=== PATIENT | male | born 1950 | race African-American/Black ===

== ENCOUNTER 2022-12-19 15:40 | Emergency (ER) | payer MEDICAID, OTHER ==
[~2022-12-19] VITALS: Ht 170.2 cm; Wt 60.0 kg
[2022-12-19] MEDS ORDERED: SODIUM CHLORIDE 0.9% 1,000 ML IV ONE (16:15)
[2022-12-19 18:09] LABS: BASOPHILS % 0.9 % (0.0-2.0); EOSINOPHILS % 0.1 % (0.0-5.0); HEMOGLOBIN. 8.5 g/dL (14.0-18.0); LYMPHOCYTES % 13.4 % (20.0-50.0); MEAN CORPUSCULAR HEMOGLOBIN 30.3 pg (28.0-32.0); MEAN CORPUSCULAR VOLUME 92.7 fL (80.0-94.0); MEAN PLATELET VOLUME 9.9 fl (7.4-10.4); MONOCYTES % 4.3 % (2.0-8.0); NEUTROPHILS % 81.3 % (40.0-76.0); RED CELL DISTRIBUTION WIDTH 14.5 % (11.6-14.6)
[2022-12-19 18:26] LABS: CHLORIDE 105 mEq/L (98-107)
[2022-12-19 18:35] LABS: CREATINE KINASE 33 IU/L (39-308)
[2022-12-19 18:40] LABS: PLATELET 115 x1000/uL (130-400)
[2022-12-19 20:18] LABS: CLARITY URINE TURBID (CLEAR); COLOR URINE DARK YELLOW (YELLOW); KETONES URINE NEGATIVE (NEGATIVE); LEUKOCYTE ESTERASE URINE 3+ (NEGATIVE); NITRITE URINE NEGATIVE (NEGATIVE); OCCULT BLOOD URINE 3+ (NEGATIVE); PH URINE 6.5 (4.5-8.0); PROTEIN URINE 2+ (NEGATIVE); SPECIFIC GRAVITY URINE 1.012 (1.005-1.030)
[2022-12-19] MEDS ORDERED: CEFTRIAXONE 1GM PREMIX 50 ML IV NR (20:45)
[2022-12-20 02:33] VITALS: BP 149/91
== END 2022-12-20 03:14 | disposition short-term general hospital (02) ==
LOC: ER 15:40 → CANBEDREQ 12-20 03:00 → ER 12-20 03:14
DX: R41.82 Altered mental status, unspecified (principal); I10 Essential (primary) hypertension
CPT/HCPCS: 36415; 70450; 71045; 80053; 81003; 82550; 82962; 84484; 85025; 87077; 87086; 87186; 93005; 96361; 96365; 96366; 99285; J0696; J7030; Z7610